=== PATIENT | female | born 1960 | race African-American/Black ===

== ENCOUNTER 2021-05-28 05:17 | Emergency (ER) | payer SELFPAY ==
[~2021-05-28] VITALS: Ht 154.9 cm; Wt 85.0 kg
[2021-05-28] MEDS ORDERED: IBUP-2028 PO (06:08)
[2021-05-28] MEDS ORDERED: T3 PO (06:08)
[2021-05-28] MEDS ORDERED: KETOROLAC 30MG/ML VIAL IM ONE (06:15)
[2021-05-28 06:23] VITALS: BP 149/80
== END 2021-05-28 06:33 | disposition home or self-care (01) ==
LOC: ER 05:55
DX: M54.2 Cervicalgia (principal); Z98.890 Other specified postprocedural states; V43.92XA Unspecified car occupant injured in collision with other type car in traffic accident, initial encounter; Y93.89 Activity, other specified; Y92.488 Other paved roadways as the place of occurrence of the external cause
CPT/HCPCS: 96372; 99283; J1885